=== PATIENT | male | born 1970 | race Caucasian/White ===

== ENCOUNTER 2017-09-08 18:52 | Inpatient (IN) | payer MEDICAID, OTHER ==
[2017-09-08] MEDS ORDERED: SODIUM CHLORIDE 0.9% 1,000 ML IV STA (18:54)
[2017-09-08 19:18] LABS: Basophils # (A) 0.1 k/uL (0-0.2); Basophils % (A) 1 %; Eosinophils # (A) 0.1 k/uL (0-0.7); Eosinophils % (A) 1 %; HCT 44.6 % (39.0-53.0); HGB 14.9 gm/dL (13.0-17.5); Lymphocytes # (A) 2.3 k/uL (1.0-4.8); Lymphocytes % (A) 27 %; MCH 30.5 pg (25.0-35.0); MCHC 33.5 g/dL (31.0-37.0); Mean Platelet Volume 8.8; Monocytes # (A) 0.5 k/uL (0-1.0); Monocytes % (A) 6 %; Neutrophils # (A) 5.5 k/uL (1.3-7.7); Neutrophils % (A) 64 %; Platelet Count 237 k/uL (150-450); RDW 12.6 % (11.5-15.5); WBC 8.7 k/uL (3.8-10.6)
--- NOTE | 2017-09-08 19:26 | ED ---
General Adult HPI - General Source: patient, EMS, RN notes reviewed Mode of arrival: EMS Limitations: no limitations <Bhavesh Yang - Last Filed: 09/08/17 20:44> <Sam Fischer - Last Filed: 09/09/17 00:10> - General Chief complaint: Overdose Stated complaint: overdose,suicidal Time Seen by Provider: 09/08/17 18:54 - History of Present Illness Initial comments: 47 yo male presents status post trazodone overdose. This was a suicide attempt. Patient ingested between 20 and 25 and 100 mg trazodone pills at approximately 5 PM. Patient had several episodes of vomiting 2530 and 6. He believes he may have vomited some of this medication. He presents to emergency department by EMS. He is somewhat lethargic but arousable to voice. He denies any coingestions. He is given Narcan by EMS with no change in mental status. Patient has no physical complaints. No abdominal pain. No further nausea. No pain complaints. (Bhavesh Yang) - Related Data Home Medications Medication Instructions Recorded Confirmed Omeprazole 20 mg PO DAILY 09/08/17 09/08/17 Allergies Allergy/AdvReac Type Severity Reaction Status Date / Time No Known Allergies Allergy Verified 09/08/17 19:17 Review of Systems ROS Other: All systems not noted in ROS Statement are negative. <Bhavesh Yang - Last Filed: 09/08/17 20:44> ROS Other: All systems not noted in ROS Statement are negative. <Sam Fischer - Last Filed: 09/09/17 00:10> ROS Statement: Those systems with pertinent positive or pertinent negative responses have been documented in the HPI. Past Medical History Past Medical History: GERD/Reflux History of Any Multi-Drug Resistant Organisms: None Reported Past Surgical History: Hernia Repair Past Psychological History: No Psychological Hx Reported Smoking Status: Current every day smoker Past Alcohol Use History: Rare Past Drug Use History: None Reported <Bhavesh Yang - Last Filed: 09/08/17 20:44> General Exam Limitations: no limitations General appearance: in no apparent distress, lethargic Head exam: Present: atraumatic, normocephalic Eye exam: Present: normal appearance, PERRL ENT exam: Present: normal exam Neck exam: Present: normal inspection. Absent: tenderness, meningismus Respiratory exam: Present: normal lung sounds bilaterally. Absent: respiratory distress, wheezes Cardiovascular Exam: Present: regular rate, normal rhythm GI/Abdominal exam: Present: soft. Absent: distended, tenderness Extremities exam: Present: normal inspection, normal capillary refill. Absent: pedal edema Neurological exam: Present: alert, oriented X3, CN II-XII intact. Absent: motor sensory deficit Psychiatric exam: Present: depressed, flat affect, suicidal ideation Skin exam: Present: warm, dry, intact. Absent: cyanosis, diaphoretic <Bhavesh Yang - Last Filed: 09/08/17 20:44> Course <Bhavesh Yang - Last Filed: 09/08/17 20:44> <Sam Fischer - Last Filed: 09/09/17 00:10> Vital Signs 09/08/17 09/08/17 09/08/17 18:57 19:44 20:49 Temperature 97.5 F L Pulse Rate 88 81 87 Respiratory 16 18 20 Rate Blood Pressure 124/68 99/58 100/56 O2 Sat by Pulse 94 L 97 97 Oximetry 09/08/17 09/08/17 09/08/17 21:17 21:27 22:00 Temperature Pulse Rate 89 100 104 H Respiratory 20 18 20 Rate Blood Pressure 102/56 118/73 104/55 O2 Sat by Pulse 97 97 97 Oximetry 09/08/17 09/08/17 09/09/17 22:38 23:00 00:00 Temperature Pulse Rate 110 H 104 H 97 Respiratory 20 20 20 Rate Blood Pressure 108/55 106/57 113/67 O2 Sat by Pulse 97 97 97 Oximetry - Reevaluation(s) Reevaluation #1: 09/08/17 20:37 On reevaluation, patient is resting comfortably, normal heart rate, blood pressure 92/60, patient is arousable to voice with no complaints. (Bhavesh Yang) Reevaluation #2: 09/08/17 patient's care is signed out at [address] Fischer, awaiting medical clearance and EPS evaluation. (Bhavesh Yang) EKG Findings - EKG Comments: EKG Findings:: EKG shows normal sinus rhythm with prolonged QT, QT see his 511, ventricular rate 92, para over 134, QRS duration 92, no signs of ischemia. <Bhavesh Yang - Last Filed: 09/08/17 20:44> Medical Decision Making - Lab Data Result diagrams: 09/08/17 19:05 09/08/17 19:05 <Bhavesh Yang - Last Filed: 09/08/17 20:44> - Lab Data Result diagrams: 09/08/17 19:05 09/08/17 19:05 <Sam Fischer - Last Filed: 09/09/17 00:10> - Medical Decision Making 47 yo male with a trazodone overdose and suicide attempt. Laboratory studies obtained, normal white blood cell count, stable hemoglobin, electrolytes within normal limits, lactic acid normal 1.8, magnesium 1.8. This is replaced on the recommendation of poison control with 2 g magnesium AST. Liver enzymes are unremarkable. Aspirin nondetectable, acetaminophen undetectable, alcohol nondetectable. (Bhavesh Yang) Repeat EKG after the magnesium isn't shows sinus tachycardia at 114 bpm ID interval is 122 QRS is 84 Q-T intervals 344 QTC is now 474. No ST segment elevation or depression is noted. (Sam Fischer) - Lab Data Lab Results 09/08/17 09/08/17 09/08/17 Range/Units 19:05 19:05 19:05 WBC 8.7 (3.8-10.6) k/uL RBC 4.90 (4.30-5.90) m/uL Hgb 14.9 (13.0-17.5) gm/dL Hct 44.6 (39.0-53.0) % MCV 91.0 (80.0-100.0) fL MCH 30.5 (25.0-35.0) pg MCHC 33.5 (31.0-37.0) g/dL RDW 12.6 (11.5-15.5) % Plt Count 237 (150-450) k/uL Neutrophils % 64 % Lymphocytes % 27 % Monocytes % 6 % Eosinophils % 1 % Basophils % 1 % Neutrophils # 5.5 (1.3-7.7) k/uL Lymphocytes # 2.3 (1.0-4.8) k/uL Monocytes # 0.5 (0-1.0) k/uL Eosinophils # 0.1 (0-0.7) k/uL Basophils # 0.1 (0-0.2) k/uL PT (9.0-12.0) sec INR (<1.2) Sodium 142 (137-145) mmol/L Potassium 4.3 (3.5-5.1) mmol/L Chloride 107 (98-107) mmol/L Carbon Dioxide 27 (22-30) mmol/L Anion Gap 8 mmol/L BUN 17 (9-20) mg/dL Creatinine 1.10 (0.66-1.25) mg/dL Est GFR (MDRD) Af Amer >60 (>60 ml/min/1.73 sqM) Est GFR (MDRD) Non-Af >60 (>60 ml/min/1.73 sqM) Glucose 128 H (74-99) mg/dL Plasma Lactic Acid Jann 1.8 (0.7-2.0) mmol/L Calcium 9.5 (8.4-10.2) mg/dL Phosphorus (2.5-4.5) mg/dL Magnesium 1.8 (1.6-2.3) mg/dL Total Bilirubin 0.3 (0.2-1.3) mg/dL AST 23 (17-59) U/L ALT 52 (21-72) U/L Alkaline Phosphatase 94 (38-126) U/L Total Protein 6.8 (6.3-8.2) g/dL Albumin 4.0 (3.5-5.0) g/dL Lipase 99 (23-300) U/L Salicylates <1.0 mg/dL Urine Opiates Screen (NotDetected) Ur Oxycodone Screen (NotDetected) Urine Methadone Screen (NotDetected) Ur Propoxyphene Screen (NotDetected) Acetaminophen <10.0 ug/mL Ur Barbiturates Screen (NotDetected) U Tricyclic Antidepress (NotDetected) Ur Phencyclidine Scrn (NotDetected) Ur Amphetamines Screen (NotDetected) U Methamphetamines Scrn (NotDetected) U Benzodiazepines Scrn (NotDetected) Urine Cocaine Screen (NotDetected) U Marijuana (THC) Screen (NotDetected) Serum Alcohol <10 mg/dL 09/08/17 09/08/17 09/08/17 Range/Units 19:05 19:05 22:39 WBC (3.8-10.6) k/uL RBC (4.30-5.90) m/uL Hgb (13.0-17.5) gm/dL Hct (39.0-53.0) % MCV (80.0-100.0) fL MCH (25.0-35.0) pg MCHC (31.0-37.0) g/dL RDW (11.5-15.5) % Plt Count (150-450) k/uL Neutrophils % % Lymphocytes % % Monocytes % % Eosinophils % % Basophils % % Neutrophils # (1.3-7.7) k/uL Lymphocytes # (1.0-4.8) k/uL Monocytes # (0-1.0) k/uL Eosinophils # (0-0.7) k/uL Basophils # (0-0.2) k/uL PT 9.7 (9.0-12.0) sec INR 1.0 (<1.2) Sodium (137-145) mmol/L Potassium (3.5-5.1) mmol/L Chloride (98-107) mmol/L Carbon Dioxide (22-30) mmol/L Anion Gap mmol/L BUN (9-20) mg/dL Creatinine (0.66-1.25) mg/dL Est GFR (MDRD) Af Amer (>60 ml/min/1.73 sqM) Est GFR (MDRD) Non-Af (>60 ml/min/1.73 sqM) Glucose (74-99) mg/dL Plasma Lactic Acid Jann (0.7-2.0) mmol/L Calcium (8.4-10.2) mg/dL Phosphorus 3.3 (2.5-4.5) mg/dL Magnesium (1.6-2.3) mg/dL Total Bilirubin (0.2-1.3) mg/dL AST (17-59) U/L ALT (21-72) U/L Alkaline Phosphatase (38-126) U/L Total Protein (6.3-8.2) g/dL Albumin (3.5-5.0) g/dL Lipase (23-300) U/L Salicylates mg/dL Urine Opiates Screen Not Detected (NotDetected) Ur Oxycodone Screen Not Detected (NotDetected) Urine Methadone Screen Not Detected (NotDetected) Ur Propoxyphene Screen Not Detected (NotDetected) Acetaminophen ug/mL Ur Barbiturates Screen Not Detected (NotDetected) U Tricyclic Antidepress Not Detected (NotDetected) Ur Phencyclidine Scrn Not Detected (NotDetected) Ur Amphetamines Screen Detected H (NotDetected) U Methamphetamines Scrn Not Detected (NotDetected) U Benzodiazepines Scrn Not Detected (NotDetected) Urine Cocaine Screen Not Detected (NotDetected) U Marijuana (THC) Screen Not Detected (NotDetected) Serum Alcohol mg/dL Disposition <Bhavesh Yang - Last Filed: 09/08/17 20:44> Time of Disposition: 00:10 <Sam Fischer - Last Filed: 09/09/17 00:10> Clinical Impression: Drug overdose, Suicide attempt Disposition: ADMITTED IP TO THIS [facility] Condition: Good Referrals: Sofiya Peng MD [Primary Care Provider] - 1-2 days
[2017-09-08 19:32] LABS: ALT 52 U/L (21-72); AST 23 U/L (17-59); Acetaminophen <10.0 ug/mL; Alcohol <10 mg/dL; Alkaline Phosphatase 94 U/L (38-126); Anion Gap 8 mmol/L; Blood Urea Nitrogen 17 mg/dL (9-20); Calcium 9.5 mg/dL (8.4-10.2); Carbon Dioxide 27 mmol/L (22-30); Chloride 107 mmol/L (98-107); Glucose 128 mg/dL (74-99); Lipase 99 U/L (23-300); Potassium 4.3 mmol/L (3.5-5.1); Salicylate <1.0 mg/dL; Sodium 142 mmol/L (137-145); Total Bilirubin 0.3 mg/dL (0.2-1.3); Total Protein 6.8 g/dL (6.3-8.2)
[2017-09-08 19:37] LABS: Prothrombin Time 9.7 sec (9.0-12.0)
[2017-09-08] MEDS ORDERED: SODIUM CHLORIDE 0.9% 1,000 ML IV ONE (20:15)
[2017-09-08] MEDS: MAGNESIUM SULFATE-D5W PMX 1 GM in DEXTROSE/WATER 1 100ML.BAG IVPB SCH ×2 (20:20→21:26)
[2017-09-08 23:02] LABS: Amphetamine Screen,Urine Detected (NotDetected); Barbiturate Screen,Urine Not Detected (NotDetected); Benzodiazepines Screen,Urine Not Detected (NotDetected); Cocaine Screen,Urine Not Detected (NotDetected); Methadone Screen, Urine Not Detected (NotDetected); Opiate Screen,Urine Not Detected (NotDetected); Oxycodone Screen, Urine Not Detected (NotDetected); Phencyclidine Screen,Urine Not Detected (NotDetected); Tricyclic Antidepressant,Urine Not Detected (NotDetected); Urn Cannabinoid Scrn Not Detected (NotDetected)
[2017-09-09] MEDS ORDERED: MAG HYDROX/AL HYDROX/SIMETH 30 ML CUP PO PRN (00:32)
[2017-09-09] MEDS ORDERED: ACETAMINOPHEN TAB 325 MG TAB PO PRN (00:32)
[2017-09-09] MEDS ORDERED: MAGNESIUM HYDROXIDE 2,400 MG/10 ML CUP PO PRN (00:32)
[2017-09-09 06:51] VITALS: RESP 16
[2017-09-09] MEDS: SODIUM CHLORIDE 0.9% 1,000 ML IV SCH ×2 (08:52→09:40)
[2017-09-09] MEDS: ESCITALOPRAM 10 MG TAB PO SCH (09:39)
[2017-09-09] MEDS: NICOTINE 14MG/24HR PATCH TRANSDERM SCH (09:40)
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
--- NOTE | 2017-09-09 17:58 | P.MDCNMH ---
History of Present Illness H&P Date: 09/09/17 Chief Complaint: Suicide attempt Patient is a 47-year-old male with a known history of GERD and active smoking was brought to the hospital post trazodone overdose. Patient tried to commit suicide. He ingested around 20-25 tablets of 100 mg trazodone pills at approximately about 5 PM yesterday. Patient had several episodes of vomiting since then. He presents to emergency department by EMS. He is given Narcan by EMS with no change in mental status. Otherwise patient denied any complaints of chest pain or shortness of breath at this time. Denied any recent illnesses or sick contacts. Patient has been having multiple issues happening in his life and feels very depressed. Review of Systems Constitutional: Patient denies any fever or chills . No generalized weakness or weight loss. Abdomen: Patient denied nausea vomiting and diarrhea and abdominal pain. Cardiovascular: Patient denies any chest pain or short of breath no palpitations. Respiratory: patient denied any cough is from production. No shortness of breath Neurologic: Patient denied any numbness or tingling headache. Musculoskeletal: Patient denies any complaints of joint swelling or deformity. Skin: Negative Psychiatric: Depressed Endocrine: No heat or cold intolerance. No recent weight gain. Genitourinary: No dysuria or hematuria. All other 14 point ROS negative except the above Past Medical History Past Medical History: GERD/Reflux History of Any Multi-Drug Resistant Organisms: None Reported Past Surgical History: Hernia Repair Past Psychological History: No Psychological Hx Reported Smoking Status: Current every day smoker Past Alcohol Use History: Rare Past Drug Use History: None Reported Medications and Allergies Home Medications Medication Instructions Recorded Confirmed Type Omeprazole 20 mg PO DAILY 09/08/17 09/09/17 History Allergies Allergy/AdvReac Type Severity Reaction Status Date / Time No Known Allergies Allergy Verified 09/09/17 06:55 Physical Exam Vitals: Vital Signs Temp Pulse Pulse Resp BP BP Pulse Ox 09/09/17 06:51 98.4 F 103 H 16 104/55 09/09/17 00:56 99.1 F 104 H 18 123/76 09/09/17 00:44 99 18 113/66 97 09/09/17 00:00 97 20 113/67 97 09/08/17 23:00 104 H 20 106/57 97 09/08/17 22:38 110 H 20 108/55 97 09/08/17 22:00 104 H 20 104/55 97 09/08/17 21:27 100 18 118/73 97 09/08/17 21:17 89 20 102/56 97 09/08/17 20:49 87 20 100/56 97 09/08/17 19:44 81 18 99/58 97 09/08/17 18:57 97.5 F L 88 16 124/68 94 L PHYSICAL EXAMINATION: Patient is lying in the bed comfortably, no acute distress, awake alert and oriented.. HEENT: Normocephalic. Neck is supple. Pupils reactive. Nostrils clear. Oral cavity is moist. Ears reveal no drainage. Neck reveals no JVD, carotid bruits, or thyromegaly. CHEST EXAMINATION: Trachea is central. Symmetrical expansion. Lung coreas clear to auscultation and percussion. CARDIAC: Normal S1, S2 with no gallops. No murmurs ABDOMEN: Soft. Bowel sounds normal. No organomegaly. No abdominal bruits. Extremities: reveal no edema. No clubbing or cyanosis Neurologically awake, alert, oriented x3 with well-coordinated movements. No focal deficits noted Skin: No rash or skin lesions. Psychiatric: Cooperative. Nonsuicidal at this time Musculoskeletal: No joint swelling or deformity. Normal range of motion. Cranial Nerve Examination - Cranial Nerves Cranial Nerve I- Olfactory: Intact Cranial Nerve II- Optic: Intact Cranial Nerve III- Oculomotor: Intact Cranial Nerve IV- Trochlear: Intact Cranial Nerve V- Trigeminal: Intact Cranial Nerve - Abducens: Intact Cranial Nerve VII- Facial: Intact Cranial Nerve VIII- Auditory: Intact Cranial Nerve IX- Glossopharyngeal: Intact Cranial Nerve X- Vagus: Intact Cranial Nerve XI- Accessory: Intact Cranial Nerve XII- Hypoglossal: Intact Results CBC & Chem 7: 09/08/17 19:05 09/08/17 19:05 Labs: Abnormal Lab Results - Last 24 Hours (Table) 09/08/17 09/08/17 Range/Units 19:05 22:39 Glucose 128 H (74-99) mg/dL Ur Amphetamines Screen Detected H (NotDetected) Assessment and Plan Assessment: Acute drug overdose with trazodone Major depression with suicide attempt GERD Nicotine addiction UDS positive for amphetamines Plan: Patient be continued on current antidepressant medications. Will be started back on Prilosec. Otherwise continue the current management and follow up closely. Further recommendations based on the clinical course. Smoking cessation has been counseled extensively. Thank you for your consult
[2017-09-10] MEDS: ESCITALOPRAM 10 MG TAB PO SCH (07:48)
[2017-09-10] MEDS: PANTOPRAZOLE 40 MG TABLET PO SCH (07:48)
[2017-09-10] MEDS: NICOTINE 14MG/24HR PATCH TRANSDERM SCH (07:48)
--- NOTE | 2017-09-10 13:50 | P.PN ---
Progress Note - Text Progress Note Date: 09/10/17 Interval History: Patient is a 47-year-old male who was admitted after taking an overdose of trazodone. I spoke with the patient this morning he states he is feeling much better today and states that the overdose was a stupid move. He states he doesn't really recall why he was taking it but thinks it must of had to do with the fact that he feels responsible for everyone and is tired of taking care of everything. He states he was arguing on the phone with his female friend with whom he had had a relationship and was living for 2 years when he and his split up. She would like the patient to leave his and have no further ties with her at all patient stated to her that this is impossible because he and his have a child together. He states that he thinks he must of taken the medication as an attempt to try to get a break from everything. He states that he did not think it would kill him nor did he take it as an suicide attempt. Patient states that he is not currently having any suicidal ideation and states that he doesn't think that counseling would assist he and his either. He states he feels responsible for everyone and states that he needs to take care of everything at home because his is not doing much of anything. He reports that he signed a three-day notice because he's ready to leave the hospital. Mental Status: Appearance/Attitude: Patient is appropriately dressed, making eye contact and is cooperative Behavior: Patient does not exhibit any psychomotor agitation or retardation. Speech/Language: Patient's speech is spontaneous and normal volume and rhythm and he is coherent. Thought Process: Patient is goal-directed there is no evidence of circumstantial or tangential thought and no loose associations or flight of ideas Thought Content: Patient denies auditory or visual hallucinations and no delusions or paranoid ideation were elicited. Patient reports that he feels overwhelmed at times because he feels he is responsible for everyone. Patient states that this female friend with whom he was arguing over the phone is insisting that he cut all of his ties with his , patient states that this is impossible because he has a child with his . Patient states he was tired of taking care of everyone when he took the medication did not think that it would kill him and thought he would just go to sleep. Medication with his 's which he states is kept in a safe at home. Patient reports his sleep is poor and he has multiple awakenings during the night but also reports that his has told him that he stops breathing. Patient's appetite is good Suicidal/Homicidal Ideation: Patient denies any current suicidal or homicidal ideation Sensorium/Cognition: Patient is alert and oriented to person, place, time and his recent and remote memory are grossly intact Mood/Affect: Patient's mood is slightly depressed and his affect is appropriate Insight/Judgment: Patient's insight and judgment are intact Assessment: Patient is able to give better history today and states that he is feeling better not having a headache and states that he took the medication to try to get a break from being responsible for taking care of everyone. He was arguing on the phone with his female friend with whom he had been living with the 2 years he was from his . Patient states that he feels overwhelmed and frustrated at times because he feels he needs to take care of everything. Patient states that he was not making a suicide attempt and states that he has never felt suicidal nor would he act on that. Patient states that he is also been taking Adderall from his primary care physician secondary to diagnosis of ADD as a child. Patient reports poor sleep for years and states that his is told him that he stops breathing while he is sleeping. Patient had told me yesterday were during the interview that he always has suicide on his mind, today he is stating that he has never thought of suicide. Plan: Patient will continue on Lexapro 10 mg a day to target his symptoms of depression, patient will continue in the hospital secondary to the severity of his suicide attempt, his prior comments regarding having been thinking about suicide for some time. Patient and I also discussed his obtaining a sleep study to be assessed for sleep apnea.
[2017-09-10 16:14] LABS: Hemoglobin A1C 5.5 % (4.0-6.0)
[2017-09-11 06:17] VITALS: BP 104/60; PULSE 77; TEMP 98.4
[2017-09-11] MEDS: ESCITALOPRAM 10 MG TAB PO SCH (09:50)
[2017-09-11] MEDS: PANTOPRAZOLE 40 MG TABLET PO SCH (09:50)
[2017-09-11] MEDS: NICOTINE 14MG/24HR PATCH TRANSDERM SCH (09:51)
[2017-09-11 10:04] VITALS: BMI 27.1
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
== END 2017-09-11 11:36 | disposition home or self-care (01) | DRG 885 ==
LOC: EC 18:52 → SUPCPDRO 18:52 → UNDOADMIN 09-09 00:26 → 3MHU 09-09 00:26
PROVIDERS: ADMIT Psychiatry & Neurology Psychiatry; ATTEND Psychiatry & Neurology Psychiatry
DX: F32.1 Major depressive disorder, single episode, moderate (principal); F15.10 Other stimulant abuse, uncomplicated; F17.200 Nicotine dependence, unspecified, uncomplicated; K21.9 Gastro-esophageal reflux disease without esophagitis; T43.212A Poisoning by selective serotonin and norepinephrine reuptake inhibitors, intentional self-harm, initial encounter; Z91.410 Personal history of adult physical and sexual abuse; Z79.899 Other long term (current) drug therapy; Z87.19 Personal history of other diseases of the digestive system
CPT/HCPCS: 36415; 80053; 80061; 80306; 80320; 83036; 83520; 83605; 83690; 83735; 84100; 84443; 85025; 85610; 93005; 96361; 96365; 96366; 99285